=== PATIENT | female | born 1950 | race Caucasian/White ===

== ENCOUNTER 2021-10-02 11:30 | Emergency (ER) | payer MEDICARE ==
[2021-10-02] MEDS ORDERED: Dexamethasone 4 MG TAB ONE (12:52)
== END 2021-10-02 13:00 | disposition home or self-care (01) ==
LOC: ERS 11:30
DX: K04.7 Periapical abscess without sinus (principal); I25.10 Atherosclerotic heart disease of native coronary artery without angina pectoris; E78.5 Hyperlipidemia, unspecified; Z79.02 Long term (current) use of antithrombotics/antiplatelets; Z79.899 Other long term (current) drug therapy
CPT/HCPCS: 99282; J8540